=== PATIENT | male | born 1990 | race Caucasian/White ===

== ENCOUNTER 2016-11-16 11:00 | Emergency (ER) | payer BC ==
--- NOTE | 2016-11-16 13:16 | DIAGNOSTIC IMAGING REPORT ---
PROCEDURE: XR HAND 3 OR 4 VIEWS - RIGHT INDICATION: DOG BITE TECHNIQUE: Four views. COMPARISON: None. FINDINGS: Osseous structures and joint spaces are normal. IMPRESSION: 1. Normal right hand.
--- NOTE | 2016-11-16 13:46 | ED NURSING NOTES ---
Clinical Report - Nurses [facility] [address] [place] [address] 11/16/2016 11:03 Patient: MODE REYES TRIAGE Triage time 1107. Acuity: LEVEL 4. Chief Complaint: DOG BITE. 11:07. TONIO COMA SCORE: [place] Coma Scale: 15- eyes open spontaneously (4); best verbal response- oriented x 4 (5); best motor response- obeys commands (6). --11:16 Shweta Goldsmith R.N. 11:07 11/16/16. BP: 124/76. HR: 92. RR: 16. O2 saturation: 98% on room air. Temp: 98.6 F. Pain level now: 9/10. --11:16 Shweta Goldsmith R.N. Weight: 81.6 kg stated. Height/Length: 70 inches Per Patient. BMI: 25.8. --11:14 Shweta Goldsmith R.N. Medications None. --11:15 Shweta Goldsmith R.N. Allergies No Known Drug Allergy. --11:15 Shweta Goldsmith R.N. History Arrived by private vehicle. Historian: patient. Accompanied by friend. No primary care physician. Location of injuries: dorsal right hand. This occurred (0200). Animals were fighting. He has had swelling. PAST MEDICAL HX: Negative. Tetanus status: more than 5 years ago. SURGERY HX: No history of previous surgery. SOCIAL HX: Heavy tobacco smoker- 1-2 packs per day. Occasional alcohol use. History of drug use: marijuana. --11:16 Shweta Goldsmith R.N. ADDITIONAL SURGERIES: no known surgeries. Interventions ID band on patient. To treatment room. --11:16 Shweta Goldsmith R.N. PHYSICAL ASSESSMENT 11:15. Ambulatory to room. Patient gowned. GENERAL / NEURO / PSYCH: Alert. Oriented X 4. Appears in no acute distress. ( pt states pain is 9/10, but sitting quietly on bed). RESPIRATORY: Respirations not labored. CVS: ( good distal c/s/m/t to fingers). Capillary refill less than 2 seconds. GI / : Abdomen soft. EXTREMITIES: Dorsal right hand: (pt has 2 wounds approx 1/2 cm each. one is between 3rd and 4th figners, the other is on dorsal surface of hand at 4th finger MP area). --11:19 Shweta Goldsmith R.N. NURSING PROGRESS NOTES 11:07. Patient gowned. Reassurance given. Patient identifiers checked. Call light placed in reach. Side rails up. Bed placed in lowest position. Patient ready for evaluation- chart flagged. --11:16 Shweta Goldsmith R.N. 11:31 11/16/2016 TDAP IM 0.5 mL given. (Lot#: [id number], expiration date: 05/24/2018). Given in the right ventral gluteus. Vaccine information statement provided to the patient. --11:36 Shweta Goldsmith R.N. 11:38 11/16/2016 Percocet (Oxycodone-Acetaminophen) PO 5/325 mg Tablets 1 tab given. Allergies verified and sedative warning given to the patient. --12:08 Shweta Goldsmith R.N. 11:25. ( hand soaked in hibicleans for 20 min). --12:10 Shweta Goldsmith R.N. 11:55. Patient walked to radiology with tech. --12:11 Shweta Goldsmith R.N. 12:05. Patient walked back to ED from radiology with tech. --12:11 Shweta Goldsmith R.N. 12:21 11/16/16. Wound irrigated with 500 mL sterile NS using a high-pressure irrigation system; patient tolerated procedure well. --12:21 Pham Gleason 13:01. Applied clean dressing consisting of steri-strips and adaptic. Secured with tape and jimy. --13:06 Pham Gleason 13:44 11/16/2016 Augmentin (Amoxicillin-Pot Clavulanate) PO Tablets 875 mg given. Allergies verified and confirmed 5 rights. --13:44 Shweta Goldsmith R.N. 13:40 pt thought he was being discharged and left after dressing and VS. I called pt at home and asked him to return for rx and written instructions. Pt pleaseant and states he will be back within an hour. --15:43 Shweta Goldsmith R.N. DISPOSITION / DISCHARGE 13:04 11/16/16. BP: 107/70. HR: 59. RR: 16. O2 saturation: 100%. Temp: 98.5 F. Pain level now 02/23. --13:05 Pham Gleason 14:25. Condition at departure: stable. No learning barriers present. Discharge instructions provided and reviewed with the patient. Reviewed medication(s) (augmentin, percocet, motrin). Patient verbalized understanding. Written instructions provided in Cypriot. The patient was discharged home and accompanied by at risk specialist. He left the Emergency Department ambulatory and via private vehicle. Screw Machine Hand driving. --15:41 Shweta Goldsmith R.N. Locked/Released at 11/16/2016 15:44 by Shweta Goldsmith R.N.
--- NOTE | 2016-11-16 13:46 | ED ORDER SUMMARY ---
..... Patient: MODE REYES OrderSheet [facility] VisitID: [id number] [place] [address] 26y, M Registration Date/Time: 11/16/2016 ORDER SHEET Weight: 81.6 kg (stated) Allergies: No Known Drug Allergy GENERAL ORDERS: Hand 3 or 4V Right Urgent (11:33 11/16/2016 Jonathan Jones) (Ack 11:34 Shelby) (12:22 DDean R.N.) Wound Irrigation (11:33 11/16/2016 Jonathan Jones) (Ack 11:34 Shelby) (11:35 Shelby) Wound Set-up: (steri strips placed on wound interdigitally/ non adhesive/ gauze dressing) (12:53 11/16/2016 EKorolekaterin P.A.-C) (13:06 Shelby) MEDICATION ORDERS: Tdap IM 0.5 mL (NOW, per protocol) (11:26 11/16/2016 DDean R.N. per protocol) (Ack 11:27 DDean R.N.) (11:36 DDean R.N.) Percocet PO 5/325 mg (HIGH ALERT MEDICATION, NOW) (11:33 11/16/2016 Jonathan Jones) (Ack 11:36 DDean R.N.) (12:08 DDean R.N.) Tturfkr-Zpttns-Xigvm Pertussis IM 0.5 mL (NOW, per protocol) (11:33 11/16/2016 Jonathan Jones) (Cancelled: Duplicate Order11:35 DDean R.N.) Augmentin PO 875 mg (NOW) (13:43 11/16/2016 Jonathan Jones) (13:44 DDean R.N.) IV FLUIDS: ORDER SHEET NOTES: [Electronically signed by Shweta Goldsmith R.N. (15:44 11/16/2016)] [Electronically signed by Stiven Garcia Dr. (15:01 11/18/2016)] [Electronically locked/signed by Shweta Goldsmith R.N. (15:44 11/16/2016)]
--- NOTE | 2016-11-16 13:46 | ED CLINICAL REPORT ---
Clinical Report - Physicians/Mid Levels [facility] [address] [place] [address] 11/16/2016 11:03 Patient: MODE REYES Time Seen: 1125. Arrived- By private vehicle. Historian- patient. HISTORY OF PRESENT ILLNESS Chief Complaint: Injury to the right hand. The injury happened today. Occurred at home. (dog bite). Patient is experiencing moderate pain. Patient denies injury to the head or neck. No other injury. ( breaking up a dog fight between his two dogs. reports their shots are up to date. eports no other pain or injury at this time including injuries to the head, neck, chest, abdomen, pelvis, back, or other extremities.). REVIEW OF SYSTEMS The patient sustained a laceration. No weakness or foreign body. All systems otherwise negative, except as recorded above. PAST HISTORY See nurses notes. Tetanus immunization status is unknown. Additional Surgeries: no known surgeries. Medications: None. Allergies: No Known Drug Allergy. SOCIAL HISTORY Smoker- current status unknown. History of occasional drug use: marijuana. No alcohol use. No recent travel. Is a local resident. ADDITIONAL NOTES The nursing notes have been reviewed. PHYSICAL EXAM Vital Signs: 11/16/2016 11:07 BP: 124/76. HR: 92. RR: 16. O2 saturation: 98%. Temp: 98.6 F. Pain level now: 9/10. Blood pressure normal. Oxygen saturation normal. Appearance: Alert. Oriented X3. No acute distress. Head: Head atraumatic. Eyes: Pupils equal, round and reactive to light. Eyes normal inspection. ENT: Ears normal. Nose normal. Pharynx normal. Neck: Normal inspection. Neck supple. C-spine non-tender. CVS: Normal heart rate and rhythm. Heart sounds normal. Pulses normal. Respiratory: No respiratory distress. Breath sounds normal. Chest nontender. Abdomen: No visible injury. Soft and nontender. Bowel sounds normal. Skin: Skin warm and dry. Skin intact. Extremities: (superficial abrasion noted in between the webs of the index finger and the middle finger. No bony abnormalities. Mild swelling. No other signs of trauma or injury. No bony other maladies. Compartments are soft. Neurovascularly intact in all digits. Patient has good range of motion in all major joints of the hand including the DIP and PIP joints.). No wrist injury. Hand and wrist exam otherwise negative. Extremities otherwise negative. Neuro, Vascular and Tendons: Vascular status intact. Sensation intact. Motor intact. Tendon function intact. LABS, X-RAYS, AND EKG Rt Hand X-ray: (PROCEDURE: XR HAND 3 OR 4 VIEWS - RIGHT INDICATION: DOG BITE TECHNIQUE: Four views. COMPARISON: None. FINDINGS: Osseous structures and joint spaces are normal. IMPRESSION: 1. Normal right hand.). Views: AP, lateral and oblique. Technique: good. The X-rays were independently viewed by me and interpreted by the radiologist. The X-rays were discussed with the radiologist (via pacs). PROGRESS AND PROCEDURES Course of Care: The patient is a pleasant 26-year-old male presenting for a Dog bite to the hand. Because of the patient's injury, x-rays of the hand will be obtained. Does not appear that thelaceration to the middle of the webs of the fingersneed to be sutured at this time. Lactic antibiotics will be provided for the dog bite. Patient is agreeable to treatment plan. Pain medication as well as tetanus has been given. Patient is workup does not show any acute osseous abnormalities maladies to the hand. Patient is resting in bed and in no acute distress. Pain has improved while here in the emergency department. I discussion with patient in regards to his workup here in the emergency department including diagnosis, home care, follow-up, and return precautions. All questions have been answered. The patient expressed understanding of these instructions and was agreeable to them. patient left prior to receiving his prescriptions and discharge paperwork. we'll attempt to male patient his discharge instructions and prescriptions. Disposition: Discharged. Condition: good. CLINICAL IMPRESSION 11/16/2016 11:07 BP: 124/76. HR: 92. RR: 16. O2 saturation: 98%. Temp: 98.6 F. Pain level now: 9/10. Blood pressure normal. Oxygen saturation normal. Single contusion to the right hand. (secondary to dog bite). Single superficial abrasion to the right hand. INSTRUCTIONS Limit use of right hand until well and until released. Off work today. Warnings: GENERAL WARNINGS: Return or contact your physician immediately if your condition worsens or changes unexpectedly, if not improving as expected, or if other problems arise. Specifically return if pain, vomiting, bleeding, breathing difficulty or fever. redness, fever, or other concerns. Your Current Medications: CONTINUE TAKING THE FOLLOWING MEDICATIONS: None*. Prescription Medications: Augmentin 875 mg: take 1 tablet orally every 12 hours for 10 days. No refill. Substitution is permissible. (Disp 20 tabs) Percocet 5 mg/325 mg: take 1 tablet orally every 6 hours as needed for pain. Dispense twelve (12). No refill. Substitution is permissible. Follow-up: Return to the emergency department as needed. Follow up with your doctor in three days. Reason for referral: recheck today's concerns. Summary of care provided to patient via paper. Screening today revealed the patient's blood pressure to be in the normal range. The patient should follow up with a primary care provider for blood pressure management. Understanding of the discharge instructions verbalized by patient. Discharge instructions reviewed (Patient left before discharge paperwork was given however discharge instructions were provided). (Electronically signed by Stiven Garcia Dr. 11/18/2016 15:01)
--- NOTE | 2016-11-16 13:46 | ED ORDER SUMMARY ---
..... Patient: MODE REYES OrderSheet [facility] VisitID: [id number] [place] [address] 26y, M Registration Date/Time: 11/16/2016 ORDER SHEET Weight: 81.6 kg (stated) Allergies: No Known Drug Allergy GENERAL ORDERS: Hand 3 or 4V Right Urgent (11:33 11/16/2016 Jonathan Jones) (Ack 11:34 Shelby) (12:22 DDean R.N.) Wound Irrigation (11:33 11/16/2016 Jonathan Jones) (Ack 11:34 Shelby) (11:35 Shelby) Wound Set-up: (steri strips placed on wound interdigitally/ non adhesive/ gauze dressing) (12:53 11/16/2016 EKorolekaterin P.A.-C) (13:06 Shelby) MEDICATION ORDERS: Tdap IM 0.5 mL (NOW, per protocol) (11:26 11/16/2016 DDean R.N. per protocol) (Ack 11:27 DDean R.N.) (11:36 DDean R.N.) Percocet PO 5/325 mg (HIGH ALERT MEDICATION, NOW) (11:33 11/16/2016 Jonathan Jones) (Ack 11:36 DDean R.N.) (12:08 DDean R.N.) Hliqwqn-Oumhij-Htwlw Pertussis IM 0.5 mL (NOW, per protocol) (11:33 11/16/2016 Jonathan Jones) (Cancelled: Duplicate Order11:35 DDean R.N.) Augmentin PO 875 mg (NOW) (13:43 11/16/2016 Jonathan Jones) (13:44 DDean R.N.) IV FLUIDS: ORDER SHEET NOTES: [Electronically signed by Shweta Goldsmith R.N. (15:44 11/16/2016)] [Electronically signed by Stiven Garcia Dr. (15:01 11/18/2016)] [Electronically locked/signed by Shweta Goldsmith R.N. (15:44 11/16/2016)]
--- NOTE | 2016-11-16 13:46 | ED NURSING NOTES ---
Clinical Report - Nurses [facility] [address] [place] [address] 11/16/2016 11:03 Patient: MODE REYES TRIAGE Triage time 1107. Acuity: LEVEL 4. Chief Complaint: DOG BITE. 11:07. TONIO COMA SCORE: [place] Coma Scale: 15- eyes open spontaneously (4); best verbal response- oriented x 4 (5); best motor response- obeys commands (6). --11:16 Shweta Goldsmith R.N. 11:07 11/16/16. BP: 124/76. HR: 92. RR: 16. O2 saturation: 98% on room air. Temp: 98.6 F. Pain level now: 9/10. --11:16 Shweta Goldsmith R.N. Weight: 81.6 kg stated. Height/Length: 70 inches Per Patient. BMI: 25.8. --11:14 Shweta Goldsmith R.N. Medications None. --11:15 Shweta Goldsmith R.N. Allergies No Known Drug Allergy. --11:15 Shweta Goldsmith R.N. History Arrived by private vehicle. Historian: patient. Accompanied by friend. No primary care physician. Location of injuries: dorsal right hand. This occurred (0200). Animals were fighting. He has had swelling. PAST MEDICAL HX: Negative. Tetanus status: more than 5 years ago. SURGERY HX: No history of previous surgery. SOCIAL HX: Heavy tobacco smoker- 1-2 packs per day. Occasional alcohol use. History of drug use: marijuana. --11:16 Shweta Goldsmith R.N. ADDITIONAL SURGERIES: no known surgeries. Interventions ID band on patient. To treatment room. --11:16 Shweta Goldsmith R.N. PHYSICAL ASSESSMENT 11:15. Ambulatory to room. Patient gowned. GENERAL / NEURO / PSYCH: Alert. Oriented X 4. Appears in no acute distress. ( pt states pain is 9/10, but sitting quietly on bed). RESPIRATORY: Respirations not labored. CVS: ( good distal c/s/m/t to fingers). Capillary refill less than 2 seconds. GI / : Abdomen soft. EXTREMITIES: Dorsal right hand: (pt has 2 wounds approx 1/2 cm each. one is between 3rd and 4th figners, the other is on dorsal surface of hand at 4th finger MP area). --11:19 Shweta Goldsmith R.N. NURSING PROGRESS NOTES 11:07. Patient gowned. Reassurance given. Patient identifiers checked. Call light placed in reach. Side rails up. Bed placed in lowest position. Patient ready for evaluation- chart flagged. --11:16 Shweta Goldsmith R.N. 11:31 11/16/2016 TDAP IM 0.5 mL given. (Lot#: [id number], expiration date: 05/24/2018). Given in the right ventral gluteus. Vaccine information statement provided to the patient. --11:36 Shweta Goldsmith R.N. 11:38 11/16/2016 Percocet (Oxycodone-Acetaminophen) PO 5/325 mg Tablets 1 tab given. Allergies verified and sedative warning given to the patient. --12:08 Shweta Goldsmith R.N. 11:25. ( hand soaked in hibicleans for 20 min). --12:10 Shweta Goldsmith R.N. 11:55. Patient walked to radiology with tech. --12:11 Shweta Goldsmith R.N. 12:05. Patient walked back to ED from radiology with tech. --12:11 Shweta Goldsmith R.N. 12:21 11/16/16. Wound irrigated with 500 mL sterile NS using a high-pressure irrigation system; patient tolerated procedure well. --12:21 Pham Gleason 13:01. Applied clean dressing consisting of steri-strips and adaptic. Secured with tape and jimy. --13:06 Pham Gleason 13:44 11/16/2016 Augmentin (Amoxicillin-Pot Clavulanate) PO Tablets 875 mg given. Allergies verified and confirmed 5 rights. --13:44 Shweta Goldsmith R.N. 13:40 pt thought he was being discharged and left after dressing and VS. I called pt at home and asked him to return for rx and written instructions. Pt pleaseant and states he will be back within an hour. --15:43 Shweta Goldsmith R.N. DISPOSITION / DISCHARGE 13:04 11/16/16. BP: 107/70. HR: 59. RR: 16. O2 saturation: 100%. Temp: 98.5 F. Pain level now 02/23. --13:05 Pham Gleason 14:25. Condition at departure: stable. No learning barriers present. Discharge instructions provided and reviewed with the patient. Reviewed medication(s) (augmentin, percocet, motrin). Patient verbalized understanding. Written instructions provided in [place] Verdean. The patient was discharged home and accompanied by field artillery operations man. He left the Emergency Department ambulatory and via private vehicle. Apartment Coordinator driving. --15:41 Shweta Goldsmith R.N. Locked/Released at 11/16/2016 15:44 by Shweta Goldsmith R.N.
--- NOTE | 2016-11-18 15:01 | ED DISCHARGE INSTRUCTIONS ---
Patient: MODE REYES General Instructions [facility] VisitID: [id number] [place] [address] 26y, M Registration Date/Time: 11/16/2016 11/16/2016 11:07 BP: 124/76. HR: 92. RR: 16. O2 saturation: 98%. Temp: 98.6 F. Pain level now: 10. Blood pressure normal. Oxygen saturation normal. Single contusion to the right hand. (secondary to dog bite). Single superficial abrasion to the right hand. INSTRUCTIONS Limit use of right hand until well and until released. Off work today. Warnings: GENERAL WARNINGS: Return or contact your physician immediately if your condition worsens or changes unexpectedly, if not improving as expected, or if other problems arise. Specifically return if pain, vomiting, bleeding, breathing difficulty or fever. redness, fever, or other concerns. Your Current Medications: CONTINUE TAKING THE FOLLOWING MEDICATIONS: None*. Prescription Medications: Augmentin 875 mg: take 1 tablet orally every 12 hours for 10 days. No refill. Substitution is permissible. (Disp 20 tabs) Percocet 5 mg/325 mg: take 1 tablet orally every 6 hours as needed for pain. Dispense twelve (12). No refill. Substitution is permissible. Follow-up: Return to the emergency department as needed. Follow up with your doctor in three days. Reason for referral: recheck today's concerns. Summary of care provided to patient via paper. Screening today revealed the patient's blood pressure to be in the normal range. The patient should follow up with a primary care provider for blood pressure management. Understanding of the discharge instructions verbalized by patient. Discharge instructions reviewed (Patient left before discharge paperwork was given however discharge instructions were provided). ADDITIONAL INFORMATION Abrasions Abrasions are skin scrapes. Their treatment depends on how large and deep the abrasion is. Home Care: If you were given a bandage, change it once a day. If your bandage sticks to the wound, soak it in warm water until it loosens. Wash the area with soap and water to remove all the cream/ointment. You may do this in a sink, under a tub faucet or shower. Rinse off the soap and pat dry with a clean towel. Reapply cream/ointment according to your doctor's instructions. This will prevent infection and help prevent the bandage from sticking. Cover the wound with a fresh non-stick bandage (Telfa). Repeat steps 1 to 4 daily, or as directed by your doctor. If the bandage becomes wet or dirty, change it as soon as possible. You may use acetaminophen (Tylenol) or ibuprofen (Motrin, Advil) to control pain, unless another pain medicine was prescribed. [ NOTE : If you have chronic liver or kidney disease or ever had a stomach ulcer or GI bleeding, talk with your doctor before using these medicines.] Do not use ibuprofen in children under six months of age. Follow Up with your physician or this facility as directed by our staff. Most skin wounds heal within ten days. However, an infection may occur despite proper treatment. Therefore, look for the early signs of infection listed below. Get Prompt Medical Attention if any of the following occur: Increasing pain in the wound Increasing redness or swelling Pus coming from the wound Fever of 100.4F (38C) or higher, or as directed by your healthcare provider Amoxicillin Trihydrate, Clavulanate Potassium Oral tablet What is this medicine? AMOXICILLIN; CLAVULANIC ACID (a mox i ANA in; MARU bran id) is a penicillin antibiotic. It is used to treat certain kinds of bacterial infections. It will not work for colds, flu, or other viral infections. How should I use this medicine? Take this medicine by mouth with a full glass of water. Follow the directions on the prescription label. Take at the start of a meal. Do not crush or chew. If the tablet has a score line, you may cut it in half at the score line for easier swallowing. Take your medicine at regular intervals. Do not take your medicine more often than directed. Take all of your medicine as directed even if you think you are better. Do not skip doses or stop your medicine early. Talk to your dental hygiene instructor regarding the use of this medicine in children. Special care may be needed. What side effects may I notice from receiving this medicine? Side effects that you should report to your doctor or health child day care teacher as soon as possible: allergic reactions like skin rash, itching or hives, swelling of the face, lips, or tongue breathing problems dark urine fever or chills, sore throat redness, blistering, peeling or loosening of the skin, including inside the mouth seizures trouble passing urine or change in the amount of urine unusual bleeding, bruising unusually weak or tired white patches or sores in the mouth or throat Side effects that usually do not require medical attention (report to your doctor or health child day care teacher if they continue or are bothersome): diarrhea dizziness headache nausea, vomiting stomach upset vaginal or anal irritation What may interact with this medicine? allopurinol anticoagulants control pills methotrexate probenecid What if I miss a dose? If you miss a dose, take it as soon as you can. If it is almost time for your next dose, take only that dose. Do not take double or extra doses. Where should I keep my medicine? Keep out of the reach of children. Store at room temperature below 25 degrees C (77 degrees F). Keep container tightly closed. Throw away any unused medicine after the expiration date. What should I tell my health care provider before I take this medicine? They need to know if you have any of these conditions: bowel disease, like colitis kidney disease liver disease mononucleosis an unusual or allergic reaction to amoxicillin, penicillin, cephalosporin, other antibiotics, clavulanic acid, other medicines, foods, dyes, or preservatives or trying to get breast-feeding What should I watch for while using this medicine? Tell your doctor or health child day care teacher if your symptoms do not improve. Do not treat diarrhea with over the counter products. Contact your doctor if you have diarrhea that lasts more than 2 days or if it is severe and watery. If you have diabetes, you may get a false-positive result for sugar in your urine. Check with your doctor or health child day care teacher. control pills may not work properly while you are taking this medicine. Talk to your doctor about using an extra method of control. Oxycodone Hydrochloride, Acetaminophen Oral tablet What is this medicine? ACETAMINOPHEN; OXYCODONE (a set a DOMINICK horacio fen; ox i KOE done) is a pain reliever. It is used to treat mild to moderate pain. How should I use this medicine? Take this medicine by mouth with a full glass of water. Follow the directions on the prescription label. Take your medicine at regular intervals. Do not take your medicine more often than directed. Talk to your dental hygiene instructor regarding the use of this medicine in children. Special care may be needed. Patients over 65 years old may have a stronger reaction and need a smaller dose. What side effects may I notice from receiving this medicine? Side effects that you should report to your doctor or health child day care teacher as soon as possible: allergic reactions like skin rash, itching or hives, swelling of the face, lips, or tongue breathing difficulties, wheezing confusion light headedness or fainting spells severe stomach pain yellowing of the skin or the whites of the eyes Side effects that usually do not require medical attention (report to your doctor or health child day care teacher if they continue or are bothersome): dizziness drowsiness nausea vomiting What may interact with this medicine? alcohol antihistamines barbiturates like amobarbital, butalbital, butabarbital, methohexital, pentobarbital, phenobarbital, thiopental, and secobarbital benztropine drugs for bladder problems like solifenacin, trospium, oxybutynin, tolterodine, hyoscyamine, and methscopolamine drugs for breathing problems like ipratropium and tiotropium drugs for certain stomach or intestine problems like propantheline, homatropine methylbromide, glycopyrrolate, atropine, belladonna, and dicyclomine general anesthetics like etomidate, ketamine, nitrous oxide, propofol, desflurane, enflurane, halothane, isoflurane, and sevoflurane medicines for depression, anxiety, or psychotic disturbances medicines for sleep muscle relaxants naltrexone narcotic medicines (opiates) for pain phenothiazines like perphenazine, thioridazine, chlorpromazine, mesoridazine, fluphenazine, prochlorperazine, promazine, and trifluoperazine scopolamine tramadol trihexyphenidyl What if I miss a dose? If you miss a dose, take it as soon as you can. If it is almost time for your next dose, take only that dose. Do not take double or extra doses. Where should I keep my medicine? Keep out of the reach of children. This medicine can be abused. Keep your medicine in a safe place to protect it from theft. Do not share this medicine with anyone. Selling or giving away this medicine is dangerous and against the law. Store at room temperature between 20 and 25 degrees C (68 and 77 degrees F). Keep container tightly closed. Protect from light. This medicine may cause accidental overdose and if it is taken by other adults, children, or pets. Flush any unused medicine down the toilet to reduce the chance of harm. Do not use the medicine after the expiration date. What should I tell my health care provider before I take this medicine? They need to know if you have any of these conditions: brain tumor Crohn's disease, inflammatory bowel disease, or ulcerative colitis drink more than 3 alcohol containing drinks per day drug abuse or addiction head injury heart or circulation problems kidney disease or problems going to the bathroom liver disease lung disease, asthma, or breathing problems an unusual or allergic reaction to acetaminophen, oxycodone, other opioid analgesics, other medicines, foods, dyes, or preservatives or trying to get breast-feeding What should I watch for while using this medicine? Tell your doctor or health child day care teacher if your pain does not go away, if it gets worse, or if you have new or a different type of pain. You may develop tolerance to the medicine. Tolerance means that you will need a higher dose of the medication for pain relief. Tolerance is normal and is expected if you take this medicine for a long time. Do not suddenly stop taking your medicine because you may develop a severe reaction. Your body becomes used to the medicine. This does NOT mean you are addicted. Addiction is a behavior related to getting and using a drug for a non-medical reason. If you have pain, you have a medical reason to take pain medicine. Your doctor will tell you how much medicine to take. If your doctor wants you to stop the medicine, the dose will be slowly lowered over time to avoid any side effects. You may get drowsy or dizzy. Do not drive, use machinery, or do anything that needs mental alertness until you know how this medicine affects you. Do not stand or sit up quickly, especially if you are an older patient. This reduces the risk of dizzy or fainting spells. Alcohol may interfere with the effect of this medicine. Avoid alcoholic drinks. There are different types of narcotic medicines (opiates) for pain. If you take more than one type at the same time, you may have more side effects. Give your health care provider a list of all medicines you use. Your doctor will tell you how much medicine to take. Do not take more medicine than directed. Call emergency for help if you have problems breathing. The medicine will cause constipation. Try to have a bowel movement at least every 2 to 3 days. If you do not have a bowel movement for 3 days, call your doctor or health child day care teacher. Do not take Tylenol (acetaminophen) or medicines that have acetaminophen with this medicine. Too much acetaminophen can be very dangerous. Many nonprescription medicines contain acetaminophen. Always read the labels carefully to avoid taking more acetaminophen. You have been given the following additional information: Abrasion Amoxicillin Trihydrate, Clavulanate Potassium Oral tablet Oxycodone Hydrochloride, Acetaminophen Oral tablet Limit use of right hand until well and until released. Off work today. (Electronically signed by Stiven Garcia Dr. 11/18/2016 15:01)
--- NOTE | 2016-11-18 15:01 | ED MED RECONCILIATION SUMMARY ---
Patient: MODE REYES Medication Reconciliation Report [facility] VisitID: [id number] [place] [address] 26y, M Registration Date/Time: 11/16/2016 Weight: 81.6 kg Height/Length: 70 in. BMI: 25.8 ALLERGIES: No Known Drug Allergy The patient's Home Medications are listed below: NONE. The source(s) of the original Home Medication information: Not obtained. The following Medications were given to the patient in the Emergency Department: TDAP [IM] IM 0.5 mL, administered: 11/16/2016 11:31:00 AM Percocet [PO] PO 1 tab, administered: 11/16/2016 11:38:00 AM Augmentin [PO] PO 875 mg, administered: 11/16/2016 1:44:00 PM The following Medications were prescribed to the patient: Augmentin 875 mg: take 1 tablet orally every 12 hours for 10 days. No refill. Substitution is permissible.(Disp 20 tabs) -- Stiven Garcia Dr. Percocet 5 mg/325 mg: take 1 tablet orally every 6 hours as needed for pain. Dispense twelve (12). No refill. Substitution is permissible. -- Stiven Garcia Dr.
--- NOTE | 2016-11-18 15:01 | ED MAR SUMMARY ---
..... Medication Administration Record [facility] [address] [place] [address] Patient: MODE REYES Visit ID: [id number] 26y, M Weight: 81.6 kg Height/Length: 70 in BMI: 25.8 ALLERGIES: No Known Drug Allergy Given 11:31 11/16/2016 Shweta Goldsmith R.N. Medication Administered: TDAP [IM], Dose: 0.5 mL IM. Medication Ordered: Tdap IM 0.5 mL (NOW, per protocol). Given 11:38 11/16/2016 Shweta Goldsmith R.N. Medication Administered: PERCOCET [PO] (OXYCODONE-ACETAMINOPHEN), Dose: 1 tab 5/325 mg Tablets PO. Medication Ordered: Percocet PO 5/325 mg (HIGH ALERT MEDICATION, NOW). Given 13:44 11/16/2016 Shweta Goldsmith RElijahN. Medication Administered: AUGMENTIN [PO] (AMOXICILLIN-POT CLAVULANATE), Dose: 875 mg Tablets PO. Medication Ordered: Augmentin PO 875 mg (NOW).
--- NOTE | 2016-11-18 15:01 | ED MED RECONCILIATION SUMMARY ---
Patient: MODE REYES Medication Reconciliation Report [facility] VisitID: [id number] [place] [address] 26y, M Registration Date/Time: 11/16/2016 Weight: 81.6 kg Height/Length: 70 in. BMI: 25.8 ALLERGIES: No Known Drug Allergy The patient's Home Medications are listed below: NONE. The source(s) of the original Home Medication information: Not obtained. The following Medications were given to the patient in the Emergency Department: TDAP [IM] IM 0.5 mL, administered: 11/16/2016 11:31:00 AM Percocet [PO] PO 1 tab, administered: 11/16/2016 11:38:00 AM Augmentin [PO] PO 875 mg, administered: 11/16/2016 1:44:00 PM The following Medications were prescribed to the patient: Augmentin 875 mg: take 1 tablet orally every 12 hours for 10 days. No refill. Substitution is permissible.(Disp 20 tabs) -- Stiven Garcia Dr. Percocet 5 mg/325 mg: take 1 tablet orally every 6 hours as needed for pain. Dispense twelve (12). No refill. Substitution is permissible. -- Sitven Garcia Dr.
--- NOTE | 2016-11-18 15:01 | ED MAR SUMMARY ---
..... Medication Administration Record [facility] [address] [place] [address] Patient: MODE REYES Visit ID: [id number] 26y, M Weight: 81.6 kg Height/Length: 70 in BMI: 25.8 ALLERGIES: No Known Drug Allergy Given 11:31 11/16/2016 Shweta Goldsmith R.N. Medication Administered: TDAP [IM], Dose: 0.5 mL IM. Medication Ordered: Tdap IM 0.5 mL (NOW, per protocol). Given 11:38 11/16/2016 Shweta Goldsmith R.N. Medication Administered: PERCOCET [PO] (OXYCODONE-ACETAMINOPHEN), Dose: 1 tab 5/325 mg Tablets PO. Medication Ordered: Percocet PO 5/325 mg (HIGH ALERT MEDICATION, NOW). Given 13:44 11/16/2016 Shweta Goldsmith RElijahN. Medication Administered: AUGMENTIN [PO] (AMOXICILLIN-POT CLAVULANATE), Dose: 875 mg Tablets PO. Medication Ordered: Augmentin PO 875 mg (NOW).
== END 2016-11-16 14:25 | disposition home or self-care (01) ==
LOC: ED SRH 11:00
DX: S60.221A Contusion of right hand, initial encounter (principal); W54.0XXA Bitten by dog, initial encounter; Y93.89 Activity, other specified; Y92.009 Unspecified place in unspecified non-institutional (private) residence as the place of occurrence of the external cause; Y99.9 Unspecified external cause status; F17.210 Nicotine dependence, cigarettes, uncomplicated

== ENCOUNTER 2017-01-21 10:22 | Outpatient (CLI) | payer BC ==
--- NOTE | 2017-01-21 11:08 | DIAGNOSTIC IMAGING REPORT ---
PROCEDURE: XR CHEST 2 VIEW INDICATION: NICOTINE ABUSE/WEIGHT LOSS TECHNIQUE: PA and lateral views. COMPARISON: Chest 05/16/2015 FINDINGS: Lungs are clear. Heart and mediastinum are normal. Thorax is normal. IMPRESSION: 1. Negative chest.
== END 2017-01-21 23:00 ==
LOC: XR SRH 10:22
DX: F17.200 Nicotine dependence, unspecified, uncomplicated (principal); R63.4 Abnormal weight loss

== ENCOUNTER 2017-01-22 10:13 | Outpatient (CLI) | payer BC ==
--- NOTE | 2017-01-22 12:01 | DIAGNOSTIC IMAGING REPORT ---
PROCEDURE: US ABDOMEN ULTRASOUND-COMPLETE INDICATION: EARLY SATIETY,ABD PAIN,WEIGHT LOSS TECHNIQUE: Costa scale and color Doppler sonographic images of the abdomen were obtained without comparison. COMPARISON: None. FINDINGS: The liver is normal in size, contour, and echotexture. No mass or intrahepatic biliary dilatation. The gallbladder is normal without stones or sludge. The wall is normal thickness measuring 1.5 mm. No pericholecystic fluid or Michel sign. The extrahepatic common duct is normal measuring 2.8 mm. The visualized pancreas is normal without ductal dilatation or peripancreatic fluid collection. The abdominal aorta is normal in its course and caliber. The retrohepatic inferior vena cava is patent. There is appropriate hepatopetal flow in the portal vein. The right kidney measures 10.5 cm in length. The left kidney measures 11.5 cm in length. Both kidneys demonstrate normal morphology and cortical thickness without hydronephrosis, cyst, solid mass, or shadowing calculus. Color Doppler imaging demonstrates normal blood flow in each kidney. The spleen is normal in size measuring 10.1 cm in length. There is no perihepatic or perisplenic ascites. IMPRESSION: 1. Normal abdominal ultrasound.
== END 2017-01-22 23:00 ==
LOC: US SRH 10:13
DX: R68.81 Early satiety (principal); R63.4 Abnormal weight loss; R10.9 Unspecified abdominal pain